=== PATIENT | male | born 1965 | race Caucasian/White ===

== ENCOUNTER → 2021-05-23 | Day surgery (SDC) | payer OTHER ==
[~2021-05-23] MED LIST: ARIMIDEX1 MG PO; ASPIRIN81 MG PO; BENADRYL25 M1 PO; DHEA25 MG PO; FENTANYL CITRATE/PF 100MCG/2 ML INJ ONE; LISINOPRIL-HCT1 EAC1 PO; MAGNESIUM PO; MIDAZOLAM HCL 2 MG/2 ML VIAL ONE; MULTI-VITAMIN1 EACH PO; NAPROXEN250 MG PO; OMEGA-31000 MG PO; OR PHACO EYE KIT ONE; PREOP PHACO EYE KIT ONE; TESTOSTERONE; VITAMIN B122500 MCG PO; VITAMIN C500 MG PO; VITAMIN D PO; ZINC PO
[2021-05-23 15:37] VITALS: BP 118/86
== END | disposition home or self-care (01) ==
LOC: OR 11:21
PROVIDERS: ATTEND Ophthalmology
DX: H25.11 Age-related nuclear cataract, right eye (principal); I10 Essential (primary) hypertension; E29.1 Testicular hypofunction; Z01.812 Encounter for preprocedural laboratory examination; Z20.822 Contact with and (suspected) exposure to COVID-19; Z79.82 Long term (current) use of aspirin; Z79.899 Other long term (current) drug therapy
CPT/HCPCS: 66984; J2250; J3010; U0002; V2788

== ENCOUNTER → 2021-06-01 | Day surgery (SDC) | payer OTHER ==
[2021-06-01 12:50] VITALS: BP 126/96
== END | disposition home or self-care (01) ==
LOC: OR 09:46
PROVIDERS: ATTEND Ophthalmology
DX: H25.12 Age-related nuclear cataract, left eye (principal); I10 Essential (primary) hypertension; Z01.812 Encounter for preprocedural laboratory examination; Z20.822 Contact with and (suspected) exposure to COVID-19; Z79.82 Long term (current) use of aspirin; Z79.899 Other long term (current) drug therapy
CPT/HCPCS: 66984; J2250; J3010; U0002; V2632